=== PATIENT | male | born 1960 | race Two or more races ===

== ENCOUNTER → 2018-09-11 16:09 | Outpatient (BNV) | payer MEDICAID, SELFPAY ==
--- NOTE | 2018-09-11 16:09 | PR.OPPALCARP ---
OP Palliative Care CWC Care Plan Follow-up Comments Additional Comments: On 09/10/18 CONTROL SYSTEM MANAGER spoke to Didier from [facility] (P:[phone]) regarding DME request submitted on 09/05/18. Didier reported requested would be re-submitted as it had not been reviewed by them. He reported he would add the day that it was originally sent out on 09/05/18 and should be processed within 7-10 business day. CONTROL SYSTEM MANAGER will continue to follow-up. *CWC Office Visit complete CWC Offive Visit Complete CWC Visit Complete?: No
--- NOTE | 2018-09-11 16:12 | CWCCLINC_ITS ---
OP Palliative Care CWC Care Plan Follow-up Comments Additional Comments: On 09/10/18 STATION CHIEF spoke to Didier from [facility] ([phone]) regarding DME request submitted on 09/05/18. Didier reported requested would be re-submitted as it had not been reviewed by them. He reported he would add the day that it was originally sent out on 09/05/18 and should be processed within 7- 10 business day. STATION CHIEF will continue to follow-up. *CWC Office Visit complete CWC Offive Visit Complete CWC Visit Complete?: No

== ENCOUNTER → 2018-09-19 16:09 | Outpatient (BNV) | payer MEDICAID, SELFPAY ==
--- NOTE | 2018-09-19 16:09 | PR.OPPALCARP ---
OP Palliative Care CWC Care Plan Follow-up Comments Additional Comments: PRETZEL TWISTER received call from [employer] regarding referral for patient wheelchair. April from [employer] reported they did not have wheelchairs in stock for patient size at the time. She reported she was not aware if they were able to obtain any at this time. She recommended PRETZEL TWISTER send referrals to [facility] or [facility]. PRETZEL TWISTER had previously submitted referral to [facility] but referral was declined due to no contract with patient insurance. PRETZEL TWISTER contacted [facility] on 09/19/18, who reported they have contract with patient insurance, however, a referral can take longer due to them obtaining a TAR (authorization) from the insurance. PRETZEL TWISTER faxed referarl to [facility] at [phone]. Will continue to follow-up. *CWC Office Visit complete CWC Offive Visit Complete CWC Visit Complete?: No
--- NOTE | 2018-09-19 16:14 | CWCCLINC_ITS ---
OP Palliative Care CWC Care Plan Follow-up Comments Additional Comments: TOOL CARRIER received call from [employer] regarding referral for patient wheelchair. April from [employer] reported they did not have wheelchairs in stock for patient size at the time. She reported she was not aw are if they were able to obtain any at this time. She recommended TOOL CARRIER send referrals to [facility] or [facility]. TOOL CARRIER had previously submitted referral to [facility] but referral was declined due to no contract with patient insurance. TOOL CARRIER contacted [facility] on 09/19/18, who reported they have contract with patient insurance, however, a referral can take longer due to them obtaining a TAR (authorization) from the insurance. TOOL CARRIER faxed referarl to [facility] at [phone]. Will continue to follow-up. *CWC Office Visit complete CWC Offive Visit Complete CWC Visit Complete?: No

== ENCOUNTER → 2024-05-06 | Outpatient (CLI) | payer MEDICARE, MEDICAID, SELFPAY ==
[2024-05-06 12:25] LABS: Basophils % (Auto) 0 % (0-2.5); Eosinophils # (Auto) 0.1 Thou/mm3 (0.0-0.5); Eosinophils % (Auto) 2 % (0-10); Hematocrit 37.7 % (41.0-53.0); Hemoglobin 12.5 g/dL (13.5-16.0); Immature Granulocytes % (Auto) 0 % (0-0); Immature Granulocytes Auto 0.02 Thou/mm3 (0.00-0.00); Lymphocytes # (Auto) 1.2 Thou/mm3 (1.0-4.8); Lymphocytes % (Auto) 19 % (10-50); Mean Corpuscular HGB Conc 33.2 g/dl (31.0-37.0); Mean Corpuscular Hemoglobin 28.3 pg (25.0-35.0); Mean Corpuscular Volume 85 fL (80-100); Monocytes # (Auto) 0.4 Thou/mm3 (0.0-0.8); Monocytes % (Auto) 6 % (0-12); Neutrophils # (Auto) 4.4 Thou/mm3 (1.8-7.7); Neutrophils % (Auto) 73 % (37-80); Nucleated Red Blood Cell % 0 /100 WBC (0); Platelet Count 238 Thou/mm3 (140-440); RDW Standard Deviation 40.6 fL (35.1-43.9); Red Blood Count 4.42 Miln/mm3 (4.50-5.90); White Blood Count 6.1 Thou/mm3 (3.8-10.6)
[2024-05-06 12:37] LABS: Prostate Specific Antigen 2.68 ng/mL (0-4.00)
[2024-05-06 12:41] LABS: Alanine Aminotransferase 22 U/L (10-49); Albumin, Serum 4.4 gm/dL (3.4-4.8); Albumin/Globulin Ratio 1.8 (1.2-2.2); Alkaline Phosphatase 57 U/L (46-116); Anion Gap 9 (7-16); Aspartate Amino Transferase 20 U/L (0-34); BUN/Creatinine Ratio 15 Ratio (12-20); Bilirubin,Total 0.5 mg/dL (0.3-1.2); Blood Urea Nitrogen 12 mg/dL (9-23); Carbon Dioxide 24.8 mMol/L (20.0-31.0); Chloride 104 mMol/L (98-107); Creatinine (Component) 0.8 mg/dL (0.6-1.3); Globulin 2.4 gm/dL (2.3-3.5); Glucose 205 mg/dL (74-106); Osmolality,Calculated 281 (275-295); Potassium 4.3 mMol/L (3.4-5.1); Sodium 138 mMol/L (136-145); Total Protein 6.8 gm/dL (5.7-8.2); eGFR > 60 See Note
== END | disposition home or self-care (01) ==
PROVIDERS: PCP Family Medicine; Referring Provider Internal Medicine Hematology & Oncology; Visit Provider Internal Medicine Hematology & Oncology
DX: C61 Malignant neoplasm of prostate (principal); C79.51 Secondary malignant neoplasm of bone
CPT/HCPCS: 36415; 80053; 84153; 85025

== ENCOUNTER → 2024-05-19 | Outpatient (CLI) | payer MEDICARE, MEDICAID, SELFPAY ==
[2024-05-25 06:56] LABS: Testosterone,Total* 7 ng/dL (250-1100)
== END | disposition home or self-care (01) ==
LOC: SCTO 11:50
PROVIDERS: PCP Family Medicine; Referring Provider Internal Medicine Hematology & Oncology; Visit Provider Internal Medicine Hematology & Oncology
DX: C61 Malignant neoplasm of prostate (principal); C79.51 Secondary malignant neoplasm of bone
CPT/HCPCS: 36415; 84403

== ENCOUNTER 2024-05-27 13:53 | Outpatient (RCR) | payer MEDICARE, MEDICAID, SELFPAY ==
--- NOTE | 2024-05-12 05:27 | CTCFLWUP_ITS ---
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 Progressed on Zytiga and prednisone. Xtandi started on 09/21/2019. He is also on Lupron and Xgeva. PSA is slowly increasing BRCA 1and2 are negative. History of ptosis of right eye, currently resolved. REASON FOR TODAY?S VISIT: This is office follow-up visit. Mr. Flowers is here at [facility]. He is clinically doing very well. Denies any new complaints. Denies any cough, chest pain, abdominal pain or leg cramps. Ambulating well without any help. Has good mitzi etite and good energy levels. Currently he is on Lupron, Xgeva and Xtandi. He is tolerating these m edications well. His PSA is 1.79 on 12/30/2023. . HISTORY OF PRESENT ILLNESS: Will Flowers is a 63-year-old SPA speaking male [facility]: Patient had CT scan of the chest abdomen and pelvis with contrast due to sudden onset of ri ght-sided chest and abdominal pain. It showed enlarged prostate gland as well as multiple sclerotic lesions within the vertebral bodies and the innominate bone. Multiple enlarged lymph nodes in the me diastinum, hans and retroperitoneum was also present. Ultrasound of the abdomen done on the same day showed large gallbladder calculus measuring up to 4 cm within a moderately thick-walled gallbladder. Positive sonographic Dang sign was present. 06/18/2018: Patient had cholecystectomy done which showed acute necrotizing cholecystitis with hemorrha ge and cholelithiasis. 07/22/2018: PSA 594.4. Alkaline phosphatase 2181. 08/04/2018: Bone scan was done which showed widespread osseous metastatic disease with increased isoto pe accumulation in the sternum, ribs, skull, cervical thoracic lumbar spine, pelvis, hips, right femo ral shaft, bilateral shoulders and right humeral shaft. 08/12/2018: Patient was prescribed Casodex. 08/27/2018: Ultrasound-guided percutaneous transrectal prostate biopsy was performed. Pathology showe d Barne[place]d score 8 prostatic adenocarcinoma with perineural invasion. 09/02/2018: PSA 359.1, alkaline phosphatase 3813. 09/25/2018: Patient had MRI of the brain which showed areas of suspicious metastasis in the skull. 10/06/2018: PSA 48.4, alk phos 1288 10/20/2018: PSA 39.8, alk phos 535 12/08/2018: PSA 3.0, alkaline phosphatase 155. 02/18/2019: PSA 0.3. Alkaline phosphatase 65 normalized. 02/19/2019: Patient was started on Zytiga and prednisone in addition to Lupron. Casodex discontinued. 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 07/22/2019: PSA is 3.65. 09/17/2019: PSA 13.56. 09/21/2019: Patient is started on Xtandi. Zytiga and prednisone were discontinued. He continues to g et Lupron and Xgeva. 11/05/2019?11/18/2019: Patient received 2500 cGy radiation therapy to the left pelvis. 11/18/2019: PSA less than 0.10 12/08/2019: MRI of the brain with contrast? 05/20/2020: PSA less than 0.10. 06/05/2021: PSA less than 0.10. 06/17/2020: MRI of the thoracic spine and lumbar spine with IV contrast? 11/28/2020: PSA less than 0.10. 06/05/2021: PSA less than 0.10 09/28/2021: PSA less than 0.10. 12/28/2021: PSA 0.11. 02/14/2022: PSA 0.20. 03/13/2022: Bone scan? 03/28/2022: CT scan of the abdomen and pelvis with IV contrast? [facility]? 07/20/2022: PSA 0.35. 09/28/2022: PSA 0.44. 10/23/2022: PSA 0.50. 12/28/2022: PSA 0.53. 04/01/2023: PSA 0.91. 04/22/2023: PSA 1.04. Hemoglobin 11.9, MCV 85, WBC 6.7, ANC 5.0, platelets 240,000, creatinine 0.8, alkaline phosphatase 48. 07/02/2023: PSA 1.17. 07/23/2023: PSA 1.6. 07/24/2023: Bone density test? 09/20/2023: PSA 1.34. 12/30/2023: PSA 1.79. PAST MEDICAL HISTORY: PAST SURGICAL HISTORY: MEDICATIONS: 1. amlodipine-benazepril - 10-40 mg 1 Capsule Daily 2. Calcium 600 - 1 Capsule Every other day 3. fentanyl - 25 mcg/hr 1 Patch q3d 4. fentanyl - 50 mcg/hr 1 Patch q3d 5. [place] - 10-325 mg 1 tab q6 6. raNITIdine HCl - 150 mg 1 tab As needed 7. Xtandi - 40 mg 4 Capsule Daily?Palabra Meds? Medications Last Reconciled by Abbi Haddad MA on 01/23/2024 ALLERGIES: No Known Drug Allergies REVIEW OF SYSTEMS:?Clone ROS? Neurological: No headache, seizures or blurring of vision. Gastrointestinal: No nausea, vomiting, diarrhea or constipation. Cardiovascular: No palpitations or angina pains. Respiratory: No cough, chest pain or shortness of breath. PHYSICAL EXAMINATION:?ClonePE? VITAL SIGNS: Temperature?98.2, B/P?156/76, Oxygen?Saturation?97% Weight?216?lbs (Change?since?01/02/24 :?1.8?lbs) PAIN: 3 - Between mild and moderate pain Patient is alert oriented x 3 S1-S2 Bilateral good air entry Abdomen soft nontender nondistended no edema ASSESSMENT: 1. castration resistant metastatic prostate cancer with bone metastases as well as retroperitoneal ly mphadenopathy The patient had a lumbar spine, T-spine as well as pelvic radiation therapy in the past PSA is 1.79. The patient denies any complaints. Currently on Lupron, Xtandi as well as Xgeva. He is tolerating these medications very well without a ny significant side effects. PSA has been steadily increasing over the last few months as documented above. Bone scan done on 07/24/2023 at [facility] showed evidence of metastatic disease to the bon es as documented above. . PLAN: Continue Lupron, Xtandi as well as Xgeva. Patient is a good candidate for radium [address] referral to higher level care for the same. Electronically signed by Dr Greene Electronically Signed by: {Object.Sanct_ID*[email or web address]@M}, {Object.Sanct_ID*PnP.Suffix@U} D: {Object.Sanct_Date} T: {Object.Sanct_Time} CC: PCP: Sabino Rodríguez Referring: Sabnio Rodríguez This document was completed utilizing speech recognition software. Grammatical errors, random word in sertions, pronoun errors, and incomplete sentences are an occasional consequence of this system due t o software limitations, ambient noise, and hardware issues. Any formal questions or concerns about th e content, text or information contained within the body of this dictation should be directly address ed to the provider for clarification.
== END 2024-06-09 23:59 | disposition home or self-care (01) ==
LOC: SCTC 13:53
PROVIDERS: PCP Family Medicine; Referring Provider Internal Medicine Hematology & Oncology; Visit Provider Radiology Therapeutic Radiology
DX: C61 Malignant neoplasm of prostate (principal); C79.51 Secondary malignant neoplasm of bone; Z79.818 Long term (current) use of other agents affecting estrogen receptors and estrogen levels; R59.0 Localized enlarged lymph nodes
CPT/HCPCS: 99212; 99213; G0463

== ENCOUNTER → 2024-06-26 | Outpatient (CLI) | payer MEDICARE, MEDICAID, SELFPAY ==
[2024-06-26 13:01] LABS: Basophils % (Auto) 0 % (0-2.5); Eosinophils # (Auto) 0.1 Thou/mm3 (0.0-0.5); Eosinophils % (Auto) 1 % (0-10); Hematocrit 37.2 % (41.0-53.0); Hemoglobin 12.9 g/dL (13.5-16.0); Immature Granulocytes % (Auto) 0 % (0-0); Immature Granulocytes Auto 0.02 Thou/mm3 (0.00-0.00); Lymphocytes % (Auto) 15 % (10-50); Mean Corpuscular HGB Conc 34.7 g/dl (31.0-37.0); Mean Corpuscular Hemoglobin 28.7 pg (25.0-35.0); Mean Corpuscular Volume 83 fL (80-100); Monocytes # (Auto) 0.4 Thou/mm3 (0.0-0.8); Monocytes % (Auto) 6 % (0-12); Neutrophils # (Auto) 5.3 Thou/mm3 (1.8-7.7); Neutrophils % (Auto) 78 % (37-80); Nucleated Red Blood Cell % 0 /100 WBC (0); Platelet Count 224 Thou/mm3 (140-440); RDW Standard Deviation 38.7 fL (35.1-43.9); White Blood Count 6.7 Thou/mm3 (3.8-10.6)
[2024-06-26 13:23] LABS: Prostate Specific Antigen 3.06 ng/mL (0-4.00)
[2024-06-26 13:26] LABS: Alanine Aminotransferase 24 U/L (10-49); Albumin, Serum 4.5 gm/dL (3.4-4.8); Alkaline Phosphatase 54 U/L (46-116); Anion Gap 9 (7-16); Aspartate Amino Transferase 19 U/L (0-34); BUN/Creatinine Ratio 19 Ratio (12-20); Bilirubin,Total 0.5 mg/dL (0.3-1.2); Blood Urea Nitrogen 19 mg/dL (9-23); Calcium 9.7 mg/dL (8.3-10.6); Calcium (Corrected) 9.7 mg/dL (8.5-10.1); Carbon Dioxide 26.7 mMol/L (20.0-31.0); Chloride 104 mMol/L (98-107); Globulin 2.3 gm/dL (2.3-3.5); Glucose 132 mg/dL (74-106); Osmolality,Calculated 283 (275-295); Potassium 4.2 mMol/L (3.4-5.1); Sodium 140 mMol/L (136-145); Total Protein 6.8 gm/dL (5.7-8.2); eGFR > 60 See Note
== END | disposition home or self-care (01) ==
LOC: SCTO 11:45
PROVIDERS: PCP Family Medicine; Referring Provider Internal Medicine Hematology & Oncology; Visit Provider Internal Medicine Hematology & Oncology
DX: C61 Malignant neoplasm of prostate (principal); C79.51 Secondary malignant neoplasm of bone
CPT/HCPCS: 36415; 80053; 84153; 85025

== ENCOUNTER 2024-06-30 13:26 | Outpatient (RCR) | payer MEDICARE, MEDICAID, SELFPAY | END 2024-07-10 23:59 | disposition home or self-care (01) | LOC: SCTC 13:26 | PROVIDERS: PCP Family Medicine; Referring Provider Family Medicine; Visit Provider Internal Medicine Hematology & Oncology | DX: Z51.11 Encounter for antineoplastic chemotherapy (principal); C61 Malignant neoplasm of prostate; C79.51 Secondary malignant neoplasm of bone; Z19.2 Hormone resistant malignancy status; Z79.818 Long term (current) use of other agents affecting estrogen receptors and estrogen levels | CPT/HCPCS: 96372; 96402; J0897; J9217 ==

== ENCOUNTER 2024-08-25 14:00 | Outpatient (RCR) | payer MEDICARE, MEDICAID, SELFPAY ==
--- NOTE | 2024-08-25 17:16 | CTCFLWUP_ITS ---
Gene Madrigal [facility] [address] [place], [place] [address] FOLLOW-UP NOTE Date: 08/25/2024 MR#: [id number] Name: LISE FLOWERS : 1960 Dx: C61 Malignant neoplasm of prostate Identification. Patient with stage IV castrate resistant metastatic carcinoma bone mets noted since 07/22/2018. Had palliative XRT to TL spine 3000 cGy September 26 and 2500 centigray to left pelvis November 2019. Had been on Lupron Xgeva Xtandi under medical oncologist?s direction. PSA after initial good control is slowly rising. Bone scan 07/24/2023 revealed significant metastatic disease in the bones. Most recent PSA 06/26/2024 3.06. Pain reasonably controlled with fentanyl 50 and [place] 10 every 6. Cures website checked we will see him again in 3 months. Electronically signed by: Barron Soto M.D. 08/25/2024 5:13 PM
== END 2024-09-07 23:59 | disposition home or self-care (01) ==
LOC: SCTC 14:00
PROVIDERS: PCP Family Medicine; Referring Provider Family Medicine; Visit Provider Radiology Therapeutic Radiology
DX: C61 Malignant neoplasm of prostate (principal); C79.51 Secondary malignant neoplasm of bone; Z19.2 Hormone resistant malignancy status; Z92.3 Personal history of irradiation; Z79.818 Long term (current) use of other agents affecting estrogen receptors and estrogen levels
CPT/HCPCS: 99213; G0463

== ENCOUNTER → 2024-09-24 | Outpatient (CLI) | payer MEDICARE, MEDICAID, SELFPAY ==
[2024-09-24 12:24] LABS: Basophils % (Auto) 1 % (0-2.5); Eosinophils # (Auto) 0.1 Thou/mm3 (0.0-0.5); Eosinophils % (Auto) 2 % (0-10); Hematocrit 37.4 % (41.0-53.0); Hemoglobin 12.5 g/dL (13.5-16.0); Immature Granulocytes % (Auto) 1 % (0-0); Immature Granulocytes Auto 0.03 Thou/mm3 (0.00-0.00); Lymphocytes % (Auto) 20 % (10-50); Mean Corpuscular HGB Conc 33.4 g/dl (31.0-37.0); Mean Corpuscular Hemoglobin 28.6 pg (25.0-35.0); Mean Corpuscular Volume 86 fL (80-100); Monocytes # (Auto) 0.2 Thou/mm3 (0.0-0.8); Monocytes % (Auto) 5 % (0-12); Neutrophils # (Auto) 3.5 Thou/mm3 (1.8-7.7); Neutrophils % (Auto) 73 % (37-80); Nucleated Red Blood Cell % 0 /100 WBC (0); Platelet Count 217 Thou/mm3 (140-440); RDW Standard Deviation 41.4 fL (35.1-43.9); Red Blood Count 4.37 Miln/mm3 (4.50-5.90); White Blood Count 4.9 Thou/mm3 (3.8-10.6)
[2024-09-24 12:38] LABS: Alanine Aminotransferase 20 U/L (10-49); Albumin, Serum 4.2 gm/dL (3.4-4.8); Albumin/Globulin Ratio 1.8 (1.2-2.2); Alkaline Phosphatase 47 U/L (46-116); Anion Gap 9 (7-16); Aspartate Amino Transferase 24 U/L (0-34); BUN/Creatinine Ratio 14 Ratio (12-20); Bilirubin,Total 0.5 mg/dL (0.3-1.2); Blood Urea Nitrogen 13 mg/dL (9-23); Calcium 9.2 mg/dL (8.3-10.6); Calcium (Corrected) 9.2 mg/dL (8.5-10.1); Carbon Dioxide 25.3 mMol/L (20.0-31.0); Chloride 108 mMol/L (98-107); Creatinine (Component) 0.9 mg/dL (0.6-1.3); Globulin 2.4 gm/dL (2.3-3.5); Glucose 226 mg/dL (74-106); Osmolality,Calculated 290 (275-295); Potassium 4.3 mMol/L (3.4-5.1); Sodium 142 mMol/L (136-145); Total Protein 6.6 gm/dL (5.7-8.2); eGFR > 60 See Note
== END | disposition home or self-care (01) ==
LOC: SCTO 11:07
PROVIDERS: PCP Family Medicine; Referring Provider Internal Medicine Hematology & Oncology; Visit Provider Internal Medicine Hematology & Oncology
DX: C61 Malignant neoplasm of prostate (principal); C79.51 Secondary malignant neoplasm of bone
CPT/HCPCS: 36415; 80053; 84153; 85025

== ENCOUNTER 2024-09-28 13:07 | Outpatient (RCR) | payer MEDICARE, MEDICAID, SELFPAY | END 2024-10-07 23:59 | disposition home or self-care (01) | LOC: SCTC 13:07 | PROVIDERS: PCP Family Medicine; Referring Provider Family Medicine; Visit Provider Internal Medicine Hematology & Oncology | DX: Z51.11 Encounter for antineoplastic chemotherapy (principal); C61 Malignant neoplasm of prostate; C79.51 Secondary malignant neoplasm of bone; Z19.2 Hormone resistant malignancy status; Z92.3 Personal history of irradiation | CPT/HCPCS: 96372; 96402; J0897; J9217 ==

== ENCOUNTER 2024-11-25 11:23 | Outpatient (RCR) | payer MEDICARE, MEDICAID, SELFPAY ==
--- NOTE | 2024-11-25 12:11 | CTCFLWUP_ITS ---
[facility] [address] [place], [place] [address] FOLLOW-UP NOTE Date: 11/25/2024 MR#: [id number] Name: LISE FLOWERS : 1960 Dx: C61 Malignant neoplasm of prostate Identification. Patient with stage IV castrate resistant metastatic prostate cancer With bone mets noted since 07/22/2018. Palliative XRT to TL spine 3000 cGy September 2018 and 25 to centigray left pelvis November 2019. Has been on Lupron and Xgeva Xtandi under medical oncologist direction. Most recent bone scan July 24, 2023 widespread bone mets. Most recent PSA 09/24/2024 3.10. Pain meds Fentanyl 50 [place] 10 Q6 case patient reasonably under control. [employer] website checked safe use of meds discussed.. Electronically signed by: Barron Soto M.D. 11/25/2024 12:09 PM
== END 2024-12-07 23:59 | disposition home or self-care (01) ==
LOC: SCTC 11:23
PROVIDERS: PCP Family Medicine; Referring Provider Family Medicine; Visit Provider Radiology Therapeutic Radiology
DX: C61 Malignant neoplasm of prostate (principal); C79.51 Secondary malignant neoplasm of bone; Z19.2 Hormone resistant malignancy status; Z92.3 Personal history of irradiation; Z79.818 Long term (current) use of other agents affecting estrogen receptors and estrogen levels
CPT/HCPCS: 99213; G0463

== ENCOUNTER → 2024-12-24 | Outpatient (CLI) | payer MEDICARE, MEDICAID, SELFPAY ==
[2024-12-24 12:08] LABS: Basophils # (Auto) 0.0 Thou/mm3 (0.0-0.2); Basophils % (Auto) 1 % (0-2.5); Eosinophils # (Auto) 0.1 Thou/mm3 (0.0-0.5); Eosinophils % (Auto) 1 % (0-10); Hematocrit 34.8 % (41.0-53.0); Hemoglobin 12.1 g/dL (13.5-16.0); Immature Granulocytes Auto 0.04 Thou/mm3 (0.00-0.00); Lymphocytes # (Auto) 1.1 Thou/mm3 (1.0-4.8); Lymphocytes % (Auto) 19 % (10-50); Mean Corpuscular HGB Conc 34.8 g/dl (31.0-37.0); Mean Corpuscular Hemoglobin 28.7 pg (25.0-35.0); Mean Corpuscular Volume 83 fL (80-100); Monocytes # (Auto) 0.3 Thou/mm3 (0.0-0.8); Monocytes % (Auto) 6 % (0-12); Neutrophils # (Auto) 4.1 Thou/mm3 (1.8-7.7); Neutrophils % (Auto) 73 % (37-80); Nucleated Red Blood Cell # 0.00 Thou/mm3 (0.00-0.00); Nucleated Red Blood Cell % 0 /100 WBC (0); Platelet Count 221 Thou/mm3 (140-440); RDW Standard Deviation 39.5 fL (35.1-43.9); Red Blood Count 4.22 Miln/mm3 (4.50-5.90); White Blood Count 5.7 Thou/mm3 (3.8-10.6)
[2024-12-24 12:18] LABS: Prostate Specific Antigen 4.01 ng/mL (0-4.00)
[2024-12-24 12:20] LABS: Alanine Aminotransferase 19 U/L (10-49); Albumin, Serum 4.1 gm/dL (3.4-4.8); Albumin/Globulin Ratio 1.6 (1.2-2.2); Alkaline Phosphatase 48 U/L (46-116); Anion Gap 10 (7-16); Aspartate Amino Transferase 23 U/L (0-34); BUN/Creatinine Ratio 17 Ratio (12-20); Bilirubin,Total 0.5 mg/dL (0.3-1.2); Blood Urea Nitrogen 17 mg/dL (9-23); Calcium 9.0 mg/dL (8.3-10.6); Calcium (Corrected) 9.0 mg/dL (8.5-10.1); Carbon Dioxide 23.7 mMol/L (20.0-31.0); Chloride 105 mMol/L (98-107); Creatinine (Component) 1.0 mg/dL (0.6-1.3); Globulin 2.6 gm/dL (2.3-3.5); Glucose 241 mg/dL (74-106); Osmolality,Calculated 287 (275-295); Potassium 4.4 mMol/L (3.4-5.1); Sodium 139 mMol/L (136-145); Total Protein 6.7 gm/dL (5.7-8.2); eGFR > 60 See Note
== END | disposition home or self-care (01) ==
LOC: COPL 11:11
PROVIDERS: PCP Family Medicine; Referring Provider Internal Medicine Hematology & Oncology; Visit Provider Internal Medicine Hematology & Oncology
DX: C61 Malignant neoplasm of prostate (principal); C79.51 Secondary malignant neoplasm of bone
CPT/HCPCS: 36415; 80053; 84153; 85025

== ENCOUNTER 2024-12-29 14:53 | Outpatient (RCR) | payer MEDICARE, MEDICAID, SELFPAY ==
--- NOTE | 2025-01-04 05:00 | CTCFLWUP_ITS ---
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 Progressed on Zytiga and prednisone. Xtandi started on 09/21/2019. He is also on Lupron and Xgeva. PSA is slowly increasing BRCA 1and2 are negative. History of ptosis of right eye, currently resolved. REASON FOR TODAY?S VISIT: This is office follow-up visit. Mr. Flowers is here at [facility]. He is clinically doing very well. Denies any new complaints. Denies any cough, chest pain, abdominal pain or leg cramps. Ambulating well without any help. Has good appetite and good energy levels. Currently he is on Lupron, Xgeva and Xtandi. He is tolerating these medications well. His PSA is 1.79 on 12/30/2023. . Malignant neoplasm of prostate [ICD10] C61; Secondary malignant neoplasm of bone [ICD10] C79.51 DATE OF DIAGNOSIS: STAGE/TNM: TREATMENT HISTORY: Care?Plan Start?Date Cycle Day Intent Eligard?3?months 06/30/2020 1 90 Palliative Xgeva?120?mg?q?3?months 06/30/2020 1 90 Palliative DOCEtaxel?75?mg/m*2?and?prednisone?5?mg?bid 10/25/2022 1 21 Palliative Lupron?22.5?mg?q?3?mon 10/03/2023 1 90 Palliative HISTORY OF PRESENT ILLNESS: Will Flowers is a 64-year-old SPA speaking male with following oncology history. 06/17/2018: Patient had CT scan of the chest abdomen and pelvis with contrast due to sudden onset of right-sided chest and abdominal pain. It showed enlarged prostate gland as well as multiple sclerotic lesions within the vertebral bodies and the innominate bone. Multiple enlarged lymph nodes in the mediastinum, hans and retroperitoneum was also present. Ultrasound of the abdomen done on the same day showed large gallbladder calculus measuring up to 4 cm within a moderately thick-walled gallbladder. Positive sonographic Dang sign was present. 06/18/2018: Patient had cholecystectomy done which showed acute necrotizing cholecystitis with hemorrhage and cholelithiasis. 07/22/2018: PSA 594.4. Alkaline phosphatase 2181. 08/04/2018: Bone scan was done which showed widespread osseous metastatic disease with increased isotope accumulation in the sternum, ribs, skull, cervical thoracic lumbar spine, pelvis, hips, right femoral shaft, bilateral shoulders and right humeral shaft. 08/12/2018: Patient was prescribed Casodex. 08/27/2018: Ultrasound-guided percutaneous transrectal prostate biopsy was performed. Pathology showed Wilbert score 8 prostatic adenocarcinoma with perineural invasion. 09/02/2018: PSA 359.1, alkaline phosphatase 3813. 09/25/2018: Patient had MRI of the brain which showed areas of suspicious metastasis in the skull. 10/06/2018: PSA 48.4, alk phos 1288 10/20/2018: PSA 39.8, alk phos 535 12/08/2018: PSA 3.0, alkaline phosphatase 155. 02/18/2019: PSA 0.3. Alkaline phosphatase 65 normalized. 02/19/2019: Patient was started on Zytiga and prednisone in addition to Lupron. Casodex discontinued. 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 07/22/2019: PSA is 3.65. 09/17/2019: PSA 13.56. 09/21/2019: Patient is started on Xtandi. Zytiga and prednisone were discontinued. He continues to get Lupron and Xgeva. 11/05/2019?11/18/2019: Patient received 2500 cGy radiation therapy to the left pelvis. 11/18/2019: PSA less than 0.10 12/08/2019: MRI of the brain with contrast? 05/20/2020: PSA less than 0.10. 06/05/2021: PSA less than 0.10. 06/17/2020: MRI of the thoracic spine and lumbar spine with IV contrast? 11/28/2020: PSA less than 0.10. 06/05/2021: PSA less than 0.10 09/28/2021: PSA less than 0.10. 12/28/2021: PSA 0.11. 02/14/2022: PSA 0.20. 03/13/2022: Bone scan? 03/28/2022: CT scan of the abdomen and pelvis with IV contrast? 04/16/2022: [facility] Cdx study? 07/20/2022: PSA 0.35. 09/28/2022: PSA 0.44. 10/23/2022: PSA 0.50. 12/28/2022: PSA 0.53. 04/01/2023: PSA 0.91. 04/22/2023: PSA 1.04. Hemoglobin 11.9, MCV 85, WBC 6.7, ANC 5.0, platelets 240,000, creatinine 0.8, alkaline phosphatase 48. 07/02/2023: PSA 1.17. 07/23/2023: PSA 1.6. 07/24/2023: Bone density test? 09/20/2023: PSA 1.34. 12/30/2023: PSA 1.79. OTHER MEDICAL HISTORY/CONDITIONS: FAMILY HISTORY: SOCIAL HISTORY: MEDICATIONS: 1. amlodipine-benazepril - 10-40 mg 1 Capsule Daily 2. Calcium 600 - 1 Capsule Every other day 3. fentanyl - 25 mcg/hr 1 Patch q3d 4. fentanyl - 50 mcg/hr 1 Patch q3d 5. [place] - 10-325 mg 1 tab q6 6. raNITIdine HCl - 150 mg 1 tab As needed 7. Xtandi - 40 mg 4 Capsule Daily Medications Last Reconciled by Elisa Fregoso MD on 12/29/2024 ALLERGIES: No Known Drug Allergies REVIEW OF SYSTEMS: A complete 14-point review of systems was performed and is negative except as noted in interval history. PHYSICAL EXAMINATION: VITAL SIGNS: Temperature?98.4, B/P?138/73, Oxygen?Saturation?97% Weight?220?lbs (Change?since?12/28/24:?0?lbs) PAIN: 0 - No pain ECOG Performance Status: None Patient is alert oriented x 3 S1-S2 Bilateral good air entry Abdomen soft nontender nondistended no edema LABORATORY DATA: I have personally reviewed and interpreted each of the patient?s relevant lab tests, abnormal findings are below: Date 09/24/24 12/24/24 ??WHITE?BLOOD?COUNT?(Thou/mm3) 4.9 5.7 ??RED?BLOOD?COUNT?(Miln/mm3) 4.37?L 4.22?L ??HEMOGLOBIN?(gm/dl) 12.5?L 12.1?L ??HEMATOCRIT?(%) 37.4?L 34.8?L ??PLATELET?COUNT?(Thou/mm3) 217 221 ??NEUTROPHILS?%,?AUTO?(%) 73 73 ??LYMPH?%,?AUTO?(%) 20 19 ??NEUTROPHILS,?AUTO?(Thou/mm3) 3.5 4.1 ??GLUCOSE,RANDOM?(mg/dL) 226?H 241?H ??BLOOD?UREA?NITROGEN?(mg/dL) 13 17 ??CREATININE?(mg/dL) 0.90 1.00 ??SODIUM?(mmol/L) 142 139 ??POTASSIUM?(mmol/L) 4.3 4.4 ??CHLORIDE?(mmol/L) 108?H 105 ??CrCl?(CandG)?(ml/min) 87.25 77.77 ??AST/SGOT?(Unit/L) 24 23 ??ALT/SGPT?(Unit/L) 20 19 ??ALKALINE?PHOSPHATASE?(Unit/L) 47 48 ??BILIRUBIN,?TOTAL?(mg/dL) 0.5 0.5 ??PROTEIN?TOTAL?(gm/dl) 6.6 6.7 ??ALBUMIN,?SERUM?(gm/dl) 4.2 4.1 ??GLOBULIN?(gm/dl) 2.4 2.6 ??ALBUMIN/GLOBULIN?RATIO 1.8 1.6 ??CALCIUM,?SERUM?(mg/dL) 9.2 9.0 ??CALCIUM?SERUM?(CORRECTED)?(mg/dL) 9.2 9.0 ASSESSMENT/PLAN: 1. castration resistant metastatic prostate cancer with bone metastases as well as retroperitoneal lymphadenopathy The patient had a lumbar spine, T-spine as well as pelvic radiation therapy in the past PSA is 1.79. The patient denies any complaints. Currently on Lupron, Xtandi as well as Xgeva. He is tolerating these medications very well without any significant side effects. PSA has been steadily increasing over the last few months as documented above. Bone scan done on 07/24/2023 at [facility] showed evidence of metastatic disease to the bones as documented above. . Continue Lupron, Xtandi as well as Xgeva. Patient is a good candidate for radium 223 Referral placed and advised to follow-up ORDERS: Order # Description [id number] PET/CT of Whole Body for Restaging [id number] Follow Up 2 Months + Comprehensive Metabolic Panel - 12 + CBC with Auto Diff + PSA RETURN TO CLINIC: I reviewed the diagnosis, prognosis, and recommended treatment/procedure options with the patient (and/or their legal client account representative), including the potential benefits, risks, side effects and alternative therapies. We also discussed the option of no treatment and the possibility of clinical trial participation, if applicable. All questions were addressed, and they demonstrated understanding. They provided informed consent to proceed with the proposed plan of care. BILLING AND COMPLIANCE: I reviewed external records from providers outside my specialty as summarized above. I spent a total of 50 minutes on this patient?s care on the day of their visit excluding time spent related to any billed procedures. This time includes time spent with the patient as well as time spent documenting in the medical record, reviewing patients records and tests, obtaining history, placing orders, communicating with other healthcare professionals, counseling the patient, family or caregiver, and/or care coordination for the diagnoses above. Electronically Signed by: {Object.Sanct_ID*PnP.NameFL@M}, {Object.Sanct_ID*PnP.Suffix@U} D: {Object.Sanct_Date} T: {Object.Sanct_Time} CC: Barron?Brittany,? PCP: Sabino Rodríguez Referring: Barron Soto This document was completed utilizing speech recognition software. Grammatical errors, random word insertions, pronoun errors, and incomplete sentences are an occasional consequence of this system due to software limitations, ambient noise, and hardware issues. Any formal questions or concerns about the content, text or information contained within the body of this dictation should be directly addressed to the provider for clarification.
== END 2025-01-07 23:59 | disposition home or self-care (01) ==
LOC: SCTC 14:53
PROVIDERS: PCP Family Medicine; Referring Provider Radiology Therapeutic Radiology; Visit Provider Internal Medicine Hematology & Oncology
DX: Z51.11 Encounter for antineoplastic chemotherapy (principal); C61 Malignant neoplasm of prostate; C79.51 Secondary malignant neoplasm of bone; Z19.2 Hormone resistant malignancy status; R59.0 Localized enlarged lymph nodes; Z92.3 Personal history of irradiation
CPT/HCPCS: 96372; 96402; 99212; J0897; J9217; G0463

== ENCOUNTER → 2025-01-21 | Outpatient (CLI) | payer MEDICARE, MEDICAID, SELFPAY ==
[2025-01-21 11:00] LABS: Creatinine MALB Rnd Ur 203 mg/dL (30-125); Microalbumin Creat Ratio 2 mg/gCrea (<30); Microalbumin, Random Urine 5 mg/L (0-300)
[2025-01-21 11:02] LABS: Anion Gap 11 (7-16); BUN/Creatinine Ratio 14 Ratio (12-20); Blood Urea Nitrogen 13 mg/dL (9-23); Calcium 9.7 mg/dL (8.3-10.6); Carbon Dioxide 23.9 mMol/L (20.0-31.0); Chloride 106 mMol/L (98-107); Creatinine (Component) 0.9 mg/dL (0.6-1.3); Glucose 155 mg/dL (74-106); Osmolality,Calculated 284 (275-295); Potassium 4.0 mMol/L (3.4-5.1); Sodium 141 mMol/L (136-145); eGFR > 60 See Note
[2025-01-21 14:24] LABS: Cholesterol 168 mg/dL (132-200); Triglycerides 170 mg/dL (30-150)
[2025-01-21 14:54] LABS: Glucose Estimated Average 163 mg/dL (80-131); Hemoglobin A1C 7.3 % Hgb (4.8-6.0)
[2025-01-21 14:57] LABS: Cardiac Risk Estimate 4.8 RATIO (4.0-6.7); HDL Cholesterol 35 mg/dL (40-60); LDL Cholesterol,Calculated 99 mg/dL (0-130)
== END | disposition home or self-care (01) ==
LOC: COPL 09:44
PROVIDERS: PCP Family Medicine; Referring Provider Family Medicine; Visit Provider Family Medicine
DX: R73.9 Hyperglycemia, unspecified (principal); Z83.3 Family history of diabetes mellitus; E78.1 Pure hyperglyceridemia
CPT/HCPCS: 36415; 80048; 80061; 82043; 82570; 83036

== ENCOUNTER → 2025-03-02 | Outpatient (CLI) | payer MEDICARE, MEDICAID, SELFPAY ==
[2025-03-02 12:41] LABS: Basophils # (Auto) 0.0 Thou/mm3 (0.0-0.2); Basophils % (Auto) 0 % (0-2.5); Eosinophils # (Auto) 0.1 Thou/mm3 (0.0-0.5); Eosinophils % (Auto) 1 % (0-10); Hematocrit 36.6 % (41.0-53.0); Hemoglobin 12.5 g/dL (13.5-16.0); Immature Granulocytes Auto 0.03 Thou/mm3 (0.00-0.00); Lymphocytes # (Auto) 1.0 Thou/mm3 (1.0-4.8); Lymphocytes % (Auto) 20 % (10-50); Mean Corpuscular HGB Conc 34.2 g/dl (31.0-37.0); Mean Corpuscular Hemoglobin 28.9 pg (25.0-35.0); Mean Corpuscular Volume 85 fL (80-100); Monocytes # (Auto) 0.3 Thou/mm3 (0.0-0.8); Monocytes % (Auto) 6 % (0-12); Neutrophils # (Auto) 3.7 Thou/mm3 (1.8-7.7); Neutrophils % (Auto) 72 % (37-80); Nucleated Red Blood Cell # 0.00 Thou/mm3 (0.00-0.00); Nucleated Red Blood Cell % 0 /100 WBC (0); Platelet Count 200 Thou/mm3 (140-440); RDW Standard Deviation 39.8 fL (35.1-43.9); Red Blood Count 4.32 Miln/mm3 (4.50-5.90); White Blood Count 5.1 Thou/mm3 (3.8-10.6)
[2025-03-02 13:01] LABS: Prostate Specific Antigen 5.01 ng/mL (0-4.00)
[2025-03-02 13:05] LABS: Alanine Aminotransferase 18 U/L (10-49); Albumin, Serum 4.2 gm/dL (3.4-4.8); Albumin/Globulin Ratio 1.7 (1.2-2.2); Alkaline Phosphatase 48 U/L (46-116); Anion Gap 11 (7-16); Aspartate Amino Transferase 23 U/L (0-34); BUN/Creatinine Ratio 14 Ratio (12-20); Bilirubin,Total 0.6 mg/dL (0.3-1.2); Blood Urea Nitrogen 14 mg/dL (9-23); Calcium 9.2 mg/dL (8.3-10.6); Calcium (Corrected) 9.2 mg/dL (8.5-10.1); Carbon Dioxide 24.5 mMol/L (20.0-31.0); Chloride 105 mMol/L (98-107); Creatinine (Component) 1.0 mg/dL (0.6-1.3); Globulin 2.5 gm/dL (2.3-3.5); Glucose 215 mg/dL (74-106); Osmolality,Calculated 285 (275-295); Potassium 4.0 mMol/L (3.4-5.1); Sodium 140 mMol/L (136-145); Total Protein 6.7 gm/dL (5.7-8.2); eGFR > 60 See Note
== END | disposition home or self-care (01) ==
LOC: SCTO 12:09
PROVIDERS: PCP Family Medicine; Referring Provider Internal Medicine Hematology & Oncology; Visit Provider Internal Medicine Hematology & Oncology
DX: C61 Malignant neoplasm of prostate (principal); C79.51 Secondary malignant neoplasm of bone
CPT/HCPCS: 36415; 80053; 84153; 85025

== ENCOUNTER 2025-03-04 13:04 | Outpatient (RCR) | payer MEDICARE, MEDICAID, SELFPAY ==
--- NOTE | 2025-02-24 12:04 | CTCFLWUP_ITS ---
[facility] [address] [place], [place] [address] FOLLOW-UP NOTE Date: 02/24/2025 MR#: [id number] Name: LISE FLOWERS : 1960 Dx: C61 Malignant neoplasm of prostate Identification. Patient has stage IVb castration resistant metastatic prostate cancer with bone mets since 07/22/2018. Palliative XRT to TL spine 3000 cGy September 2018 and 2500 cGy to left pelvis November 2019. Has been on Lupron and Xgeva Xtandi under medical oncologists direction. Most recent bone scan 07/24/2023 widespread bone mets. Most recent PSA 12/24/2024 4.01 slowly rising. Pain managed with fentanyl 50 and [place] 10 every 6 cures website checked med side effects effectiveness discussed with patient. Patient being considered for radium-223, which used to be done at [facility] but had to be dropped due to financial and insurance concerns. I will see him again in 3 months for pain management. Electronically signed by: Barron Soto M.D. 02/24/2025 12:02 PM
--- NOTE | 2025-03-08 01:43 | CTCFLWUP_ITS ---
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 His history includes progression on prednisone. Transportation barriers prevented his [facility] appointment for iridium therapy and delayed his PSMA PET scan. Current PSA is 5. He continues Xtandi, Lupron, and Xgeva. Plan includes docetaxel (patient prefers awaiting [facility] opinion), completing PSMA PET scan, [facility] follow-up for iridium therapy, and addiction social worker referral for transportation assistance. ONCOLOGY HISTORY:?[facility] Oncology Hx? DIAGNOSIS: Stage IVb castration resistant metastatic prostate cancer with bone metastases (07/22/2018). Progressed on Zytiga and prednisone. Xtandi started on 09/21/2019. He is also on Lupron and Xgeva. PSA is slowly increasing BRCA 1and2 are negative. History of ptosis of right eye, currently resolved. 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 The patient has been experiencing transportation difficulties that have impacted his ability to access specialized care. His daughter, who previously served as his primary caregiver and transported him to appointments, was involved in an accident and is currently unable to assist him. He cannot drive himself and has four children, but the others are out of town or state. The only local daughter who could help is the one who had the accident and is also sick. Due to these transportation barriers, the patient was unable to make his appointment at [facility] for possible iridium therapy for metastatic bone disease, despite having an approved referral that was faxed in December. He has been waiting for a PSMA PET scan appointment in [place], which remains pending. The patient has been adherent to his current medication regimen, which includes Xtandi after progressing on prednisone, Lupron, and Xgeva as supportive therapies. His most recent PSA level was five. He expresses preference to wait for a [facility] opinion before starting chemotherapy and wants his daughter to serve as the primary contact for referrals. Medical History - Stage 4b castration-resistant metastatic prostate cancer with bone marrow loss - Metastatic disease to the bones confirmed on nuclear bone scan November 22, 2023 Medications and Supplements - Xtandi - Lupron - Xgeva - Prednisone - Discontinued. Patient progressed on this medication. Social History - Family Structure: Has four children, most of whom live out of town or state - Living Situation: Primary caregiver is daughter who was recently in an accident and is currently unable to provide assistance - Social Support: Transportation challenges due to inability to drive and limited family support locally; addiction social worker referral being placed for additional support Objective Laboratory, Imaging, and Diagnostic Test Results - Date: November 22, 2023 - Nuclear bone scan: Significant metastatic disease to the bones - PSA: 5 DATE OF DIAGNOSIS: STAGE/TNM: TREATMENT HISTORY: Care?Plan Start?Date Cycle Day Intent Eligard?3?months 06/30/2020 1 90 Palliative Xgeva?120?mg?q?3?months 06/30/2020 1 90 Palliative DOCEtaxel?75?mg/m*2?and?prednisone?5?mg?bid 10/25/2022 1 21 Palliative Lupron?22.5?mg?q?3?mon 10/03/2023 1 90 Palliative Docetaxel?75mg/m2 03/04/2025 1 21 Palliative HISTORY OF PRESENT ILLNESS: Will Flowers is a 64-year-old SPA speaking male with following oncology history. 06/17/2018: Patient had CT scan of the chest abdomen and pelvis with contrast due to sudden onset of right-sided chest and abdominal pain. It showed enlarged prostate gland as well as multiple sclerotic lesions within the vertebral bodies and the innominate bone. Multiple enlarged lymph nodes in the mediastinum, hans and retroperitoneum was also present. Ultrasound of the abdomen done on the same day showed large gallbladder calculus measuring up to 4 cm within a moderately thick-walled gallbladder. Positive sonographic Dang sign was present. 06/18/2018: Patient had cholecystectomy done which showed acute necrotizing cholecystitis with hemorrhage and cholelithiasis. 07/22/2018: PSA 594.4. Alkaline phosphatase 2181. 08/04/2018: Bone scan was done which showed widespread osseous metastatic disease with increased isotope accumulation in the sternum, ribs, skull, cervical thoracic lumbar spine, pelvis, hips, right femoral shaft, bilateral shoulders and right humeral shaft. 08/12/2018: Patient was prescribed Casodex. 08/27/2018: Ultrasound-guided percutaneous transrectal prostate biopsy was performed. Pathology showed Wilbert score 8 prostatic adenocarcinoma with perineural invasion. 09/02/2018: PSA 359.1, alkaline phosphatase 3813. 09/25/2018: Patient had MRI of the brain which showed areas of suspicious metastasis in the skull. 10/06/2018: PSA 48.4, alk phos 1288 10/20/2018: PSA 39.8, alk phos 535 12/08/2018: PSA 3.0, alkaline phosphatase 155. 02/18/2019: PSA 0.3. Alkaline phosphatase 65 normalized. 02/19/2019: Patient was started on Zytiga and prednisone in addition to Lupron. Casodex discontinued. 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 07/22/2019: PSA is 3.65. 09/17/2019: PSA 13.56. 09/21/2019: Patient is started on Xtandi. Zytiga and prednisone were discontinued. He continues to get Lupron and Xgeva. 11/05/2019?11/18/2019: Patient received 2500 cGy radiation therapy to the left pelvis. 11/18/2019: PSA less than 0.10 12/08/2019: MRI of the brain with contrast? 05/20/2020: PSA less than 0.10. 06/05/2021: PSA less than 0.10. 06/17/2020: MRI of the thoracic spine and lumbar spine with IV contrast? 11/28/2020: PSA less than 0.10. 06/05/2021: PSA less than 0.10 09/28/2021: PSA less than 0.10. 12/28/2021: PSA 0.11. 02/14/2022: PSA 0.20. 03/13/2022: Bone scan? 03/28/2022: CT scan of the abdomen and pelvis with IV contrast? 04/16/2022: [facility] Cdx study? 07/20/2022: PSA 0.35. 09/28/2022: PSA 0.44. 10/23/2022: PSA 0.50. 12/28/2022: PSA 0.53. 04/01/2023: PSA 0.91. 04/22/2023: PSA 1.04. Hemoglobin 11.9, MCV 85, WBC 6.7, ANC 5.0, platelets 240,000, creatinine 0.8, alkaline phosphatase 48. 07/02/2023: PSA 1.17. 07/23/2023: PSA 1.6. 07/24/2023: Bone density test? 09/20/2023: PSA 1.34. 12/30/2023: PSA 1.79. OTHER MEDICAL HISTORY/CONDITIONS: FAMILY HISTORY: ?Clone Family Hx? SOCIAL HISTORY: MEDICATIONS: 1. amlodipine-benazepril - 10-40 mg 1 Capsule Daily 2. Calcium 600 - 1 Capsule Every other day 3. fentanyl - 25 mcg/hr 1 Patch q3d 4. fentanyl - 50 mcg/hr 1 Patch q3d 5. [place] - 10-325 mg 1 tab q6 6. raNITIdine HCl - 150 mg 1 tab As needed 7. Xtandi - 40 mg 4 Capsule Daily?[place]ra Meds? Medications Last Reconciled by Elisa Fregoso MD on 03/04/2025 ALLERGIES: No Known Drug Allergies REVIEW OF SYSTEMS: A complete 14-point review of systems was performed and is negative except as noted in interval history. PHYSICAL EXAMINATION:?CloneBlock PE? VITAL SIGNS: Temperature?97.8, B/P?152/86, Oxygen?Saturation?96% Weight?216?lbs (Change?since?02/24/25:?0?lbs) PAIN: 0 - No pain Patient is alert oriented x 3 S1-S2 Bilateral good air entry Abdomen soft nontender nondistended no edema LABORATORY DATA: I have personally reviewed and interpreted each of the patient?s relevant lab tests, abnormal findings are below: Date 12/24/24 01/21/25 03/02/25 ??WHITE?BLOOD?COUNT?(Thou/mm3) ? ? 5.1 ??RED?BLOOD?COUNT?(Miln/mm3) ? ? 4.32?L ??HEMOGLOBIN?(gm/dl) ? ? 12.5?L ??HEMATOCRIT?(%) ? ? 36.6?L ??PLATELET?COUNT?(Thou/mm3) ? ? 200 ??NEUTROPHILS?%,?AUTO?(%) ? ? 72 ??LYMPH?%,?AUTO?(%) ? ? 20 ??NEUTROPHILS,?AUTO?(Thou/mm3) ? ? 3.7 ??GLUCOSE,RANDOM?(mg/dL) 241?H 155?H 215?H ??BLOOD?UREA?NITROGEN?(mg/dL) 17 13 14 ??CREATININE?(mg/dL) 1.00 0.90 1.00 ??SODIUM?(mmol/L) 139 141 140 ??POTASSIUM?(mmol/L) 4.4 4.0 4.0 ??CHLORIDE?(mmol/L) 105 106 105 ??CrCl?(CandG)?(ml/min) 77.77 86.42 77.03 ??AST/SGOT?(Unit/L) 23 ? 23 ??ALT/SGPT?(Unit/L) 19 ? 18 ??ALKALINE?PHOSPHATASE?(Unit/L) 48 ? 48 ??BILIRUBIN,?TOTAL?(mg/dL) 0.5 ? 0.6 ??PROTEIN?TOTAL?(gm/dl) 6.7 ? 6.7 ??ALBUMIN,?SERUM?(gm/dl) 4.1 ? 4.2 ??GLOBULIN?(gm/dl) 2.6 ? 2.5 ??ALBUMIN/GLOBULIN?RATIO 1.6 ? 1.7 ??CALCIUM,?SERUM?(mg/dL) 9.0 9.7 9.2 ??CALCIUM?SERUM?(CORRECTED)?(mg/dL) 9.0 ? 9.2 ASSESSMENT/PLAN:?Mayra Greene Assessment/Plan? Assessment and Plan will Stern is a 64-year-old male with a history of stage 4b castration-resistant metastatic prostate cancer presenting with disease progression and transportation barriers to specialized care. Stage 4b castration-resistant metastatic prostate cancer Assessment: The patient has advanced castration-resistant metastatic prostate cancer with extensive bone metastases demonstrated on nuclear bone scan from November 22, 2023. Disease has progressed despite treatment with prednisone, now on Xtandi with last PSA of 5. PSMA PET scan was ordered but remains incomplete due to logistical challenges. Patient was referred to [facility] for possible iridium therapy for metastatic bone disease but unable to attend due to transportation issues. Current supportive therapies include Lupron and Xgeva. Plan: - Continue Xtandi - Continue Lupron - Continue Xgeva as supportive therapy - Start docetaxel (patient prefers to wait for [facility] opinion before initiating chemotherapy, orders placed for approval) - Complete PSMA PET scan at [place] - Follow up with [facility] for iridium therapy evaluation - Follow-up in 2 months Transportation barriers to care Assessment: Patient cannot drive and primary caregiver daughter is unavailable after being in an accident and becoming ill herself. Other children live out of town or state. Transportation issues have prevented completion of PSMA scan and C referral appointment. Plan: - Provide transportation assistance for PSMA PET scan (can be done in [place] or [place], appointment pending in [place]) - jordan worker referral - Daughter designated as primary contact for referrals. Malignant neoplasm of prostate [ICD10] C61; Secondary malignant neoplasm of bone [ICD10] C79.51 . Continue Lupron, Xtandi as well as Xgeva. Patient is a good candidate for radium 223 Referral placed and advised to follow-up RETURN TO CLINIC: I reviewed the diagnosis, prognosis, and recommended treatment/procedure options with the patient (and/or their legal sales representative cash registers), including the potential benefits, risks, side effects and alternative therapies. We also discussed the option of no treatment and the possibility of clinical trial participation, if applicable. All questions were addressed, and they demonstrated understanding. They provided informed consent to proceed with the proposed plan of care. BILLING AND COMPLIANCE: I reviewed external records from providers outside my specialty as summarized above. I spent a total of 50 minutes on this patient?s care on the day of their visit excluding time spent related to any billed procedures. This time includes time spent with the patient as well as time spent documenting in the medical record, reviewing patients records and tests, obtaining history, placing orders, communicating with other healthcare professionals, counseling the patient, family or caregiver, and/or care coordination for the diagnoses above. Electronically Signed by: Gregorio Greene MD T: 1:41 AM CC: Sudha? PCP: Sabino Rodríguez Referring: Sabino Rodríguez This document was completed utilizing speech recognition software. Grammatical errors, random word insertions, pronoun errors, and incomplete sentences are an occasional consequence of this system due to software limitations, ambient noise, and hardware issues. Any formal questions or concerns about the content, text or information contained within the body of this dictation should be directly addressed to the provider for clarification.
== END 2025-03-09 23:59 | disposition home or self-care (01) ==
LOC: SCTC 13:04
PROVIDERS: PCP Family Medicine; Referring Provider Family Medicine; Visit Provider Internal Medicine Hematology & Oncology
DX: C61 Malignant neoplasm of prostate (principal); C79.51 Secondary malignant neoplasm of bone; Z19.2 Hormone resistant malignancy status; Z92.3 Personal history of irradiation; Z79.818 Long term (current) use of other agents affecting estrogen receptors and estrogen levels; Z59.82 Transportation insecurity
CPT/HCPCS: 99212; G0463

== ENCOUNTER → 2025-03-29 | Outpatient (CLI) | payer MEDICARE, MEDICAID, SELFPAY ==
[2025-03-29 14:07] LABS: Prostate Specific Antigen 4.42 ng/mL (0-4.00)
[2025-03-29 14:11] LABS: Alanine Aminotransferase 21 U/L (10-49); Albumin, Serum 4.4 gm/dL (3.4-4.8); Albumin/Globulin Ratio 1.7 (1.2-2.2); Alkaline Phosphatase 49 U/L (46-116); Anion Gap 12 (7-16); Aspartate Amino Transferase 22 U/L (0-34); BUN/Creatinine Ratio 9 Ratio (12-20); Bilirubin,Total 0.5 mg/dL (0.3-1.2); Blood Urea Nitrogen 9 mg/dL (9-23); Calcium 9.7 mg/dL (8.3-10.6); Calcium (Corrected) 9.7 mg/dL (8.5-10.1); Carbon Dioxide 25.1 mMol/L (20.0-31.0); Chloride 102 mMol/L (98-107); Creatinine (Component) 1.0 mg/dL (0.6-1.3); Globulin 2.6 gm/dL (2.3-3.5); Glucose 236 mg/dL (74-106); Osmolality,Calculated 284 (275-295); Potassium 4.3 mMol/L (3.4-5.1); Sodium 139 mMol/L (136-145); Total Protein 7.0 gm/dL (5.7-8.2); eGFR > 60 See Note
[2025-03-29 14:12] LABS: Basophils # (Auto) 0.0 Thou/mm3 (0.0-0.2); Basophils % (Auto) 1 % (0-2.5); Eosinophils # (Auto) 0.1 Thou/mm3 (0.0-0.5); Eosinophils % (Auto) 2 % (0-10); Hematocrit 37.4 % (41.0-53.0); Hemoglobin 12.4 g/dL (13.5-16.0); Immature Granulocytes Auto 0.05 Thou/mm3 (0.00-0.00); Lymphocytes # (Auto) 1.0 Thou/mm3 (1.0-4.8); Lymphocytes % (Auto) 19 % (10-50); Mean Corpuscular HGB Conc 33.2 g/dl (31.0-37.0); Mean Corpuscular Hemoglobin 28.5 pg (25.0-35.0); Mean Corpuscular Volume 86 fL (80-100); Monocytes # (Auto) 0.3 Thou/mm3 (0.0-0.8); Monocytes % (Auto) 5 % (0-12); Neutrophils # (Auto) 3.9 Thou/mm3 (1.8-7.7); Neutrophils % (Auto) 72 % (37-80); Nucleated Red Blood Cell # 0.00 Thou/mm3 (0.00-0.00); Nucleated Red Blood Cell % 0 /100 WBC (0); Platelet Count 229 Thou/mm3 (140-440); RDW Standard Deviation 40.5 fL (35.1-43.9); Red Blood Count 4.35 Miln/mm3 (4.50-5.90); White Blood Count 5.4 Thou/mm3 (3.8-10.6)
== END | disposition home or self-care (01) ==
LOC: SCTO 11:27
PROVIDERS: Referring Provider Internal Medicine Hematology & Oncology; Visit Provider Internal Medicine Hematology & Oncology
DX: C61 Malignant neoplasm of prostate (principal); C79.51 Secondary malignant neoplasm of bone
CPT/HCPCS: 36415; 80053; 84153; 85025

== ENCOUNTER 2025-03-31 09:01 | Outpatient (RCR) | payer MEDICARE, MEDICAID, SELFPAY | END 2025-04-09 23:59 | disposition home or self-care (01) | LOC: SCTC 09:01 | PROVIDERS: Referring Provider Internal Medicine Hematology & Oncology; Visit Provider Internal Medicine Hematology & Oncology | DX: Z51.11 Encounter for antineoplastic chemotherapy (principal); C61 Malignant neoplasm of prostate; C79.51 Secondary malignant neoplasm of bone; Z19.2 Hormone resistant malignancy status; Z59.82 Transportation insecurity | CPT/HCPCS: 96372; 96402; J0897; J9217 ==

== ENCOUNTER → 2025-04-26 | Outpatient (CLI) | payer MEDICARE, MEDICAID, SELFPAY ==
[2025-04-26 10:13] LABS: Basophils # (Auto) 0.0 Thou/mm3 (0.0-0.2); Basophils % (Auto) 1 % (0-2.5); Eosinophils # (Auto) 0.2 Thou/mm3 (0.0-0.5); Eosinophils % (Auto) 4 % (0-10); Hematocrit 38.8 % (41.0-53.0); Hemoglobin 12.8 g/dL (13.5-16.0); Immature Granulocytes Auto 0.03 Thou/mm3 (0.00-0.00); Lymphocytes # (Auto) 1.2 Thou/mm3 (1.0-4.8); Lymphocytes % (Auto) 23 % (10-50); Mean Corpuscular HGB Conc 33.0 g/dl (31.0-37.0); Mean Corpuscular Hemoglobin 28.3 pg (25.0-35.0); Mean Corpuscular Volume 86 fL (80-100); Monocytes # (Auto) 0.4 Thou/mm3 (0.0-0.8); Monocytes % (Auto) 7 % (0-12); Neutrophils # (Auto) 3.4 Thou/mm3 (1.8-7.7); Neutrophils % (Auto) 66 % (37-80); Nucleated Red Blood Cell # 0.00 Thou/mm3 (0.00-0.00); Nucleated Red Blood Cell % 0 /100 WBC (0); Platelet Count 237 Thou/mm3 (140-440); RDW Standard Deviation 40.6 fL (35.1-43.9); Red Blood Count 4.53 Miln/mm3 (4.50-5.90); White Blood Count 5.2 Thou/mm3 (3.8-10.6)
[2025-04-26 10:15] LABS: Glucose Estimated Average 169 mg/dL (80-131); Hemoglobin A1C 7.5 % Hgb (4.8-6.0)
[2025-04-26 10:41] LABS: Anion Gap 9 (7-16); BUN/Creatinine Ratio 14 Ratio (12-20); Blood Urea Nitrogen 13 mg/dL (9-23); Calcium 9.5 mg/dL (8.3-10.6); Carbon Dioxide 27.7 mMol/L (20.0-31.0); Chloride 103 mMol/L (98-107); Creatinine (Component) 0.9 mg/dL (0.6-1.3); Glucose 155 mg/dL (74-106); Osmolality,Calculated 282 (275-295); Potassium 4.5 mMol/L (3.4-5.1); Sodium 140 mMol/L (136-145); eGFR > 60 See Note
== END | disposition home or self-care (01) ==
LOC: COPL 09:31
PROVIDERS: PCP Family Medicine; Referring Provider Family Medicine; Visit Provider Family Medicine
DX: R73.9 Hyperglycemia, unspecified (principal); D50.9 Iron deficiency anemia, unspecified
CPT/HCPCS: 36415; 80048; 83036; 85025

== ENCOUNTER 2025-05-04 13:42 | Outpatient (RCR) | payer MEDICARE, MEDICAID, SELFPAY | END 2025-05-09 23:59 | disposition home or self-care (01) | LOC: SCTC 13:42 | PROVIDERS: PCP Family Medicine; Referring Provider Family Medicine; Visit Provider Internal Medicine Hematology & Oncology | DX: C61 Malignant neoplasm of prostate (principal); C79.51 Secondary malignant neoplasm of bone; Z19.2 Hormone resistant malignancy status; Z79.818 Long term (current) use of other agents affecting estrogen receptors and estrogen levels; Z59.82 Transportation insecurity | CPT/HCPCS: 99212; G0463 ==

== ENCOUNTER 2025-05-04 15:14 | Emergency (ER) | payer MEDICARE, MEDICAID, SELFPAY ==
[2025-05-04 15:14] VITALS: BMI 35.9
--- NOTE | 2025-05-04 15:18 | EKG_ITS ---
[facility] Test Date: 2025-05-04 Pat Name: LISE FLOWERS Department: Room: - Gender: Male Studio Data Analyst: : 1960 Requested By: Elisa Aviles Order Number: [id number] Reading MD: Elisa Aviles Measurements Intervals [place] Rate: 68 P: 19 KS: 159 QRS: -54 QRSD: 100 T: 62 QT: 396 QTc: 422 Interpretive Statements SINUS RHYTHM LEFT ANTERIOR FASCICULAR BLOCK [QRS AXIS <= -45, QR IN I, RS IN II] MINIMAL VOLTAGE CRITERIA FOR LVH, CONSIDER NORMAL VARIANT [MEETS CRITERIA IN ONE OF: R(aVL), S(V1), R(V5), R(V5/V6)+S(V1)] NONSPECIFIC T-WAVE ABNORMALITY Compared to ECG 10/07/2018 17:22:24 No significant changes /store/S0/[id number].pdf
[2025-05-04 15:27] VITALS: BP 124/84; PULSE 70; RESP 18; TEMP 36.8; O2SAT 95
--- NOTE | 2025-05-04 15:40 | XR_ITS ---
EXAMINATION: PA chest single view TECHNIQUE: Upright PA chest single view Date and time: May 04, 2025, 1553 hours INDICATIONS: Chest pain beginning 4 days ago. FINDINGS: Mild prominence left ventricle Mild elevation right hemidiaphragm. No pneumonia or pulmonary edema Suspicious for 20 mm pulmonary nodule right upper lobe IMPRESSION: Recommend CT chest without contrast follow-up to exclude 20 mm pulmonary nodule right upper lobe
--- NOTE | 2025-05-04 15:40 | PD.EDRME ---
Rapid Medical Screening Exam RME Arrival date/time: 05/04/25 15:14 65-year-old male with a history of prostate cancer that has metastasized to the bone was sent to the emergency room by the cancer treatment center for chest pain and palpitations x 2 days I have greeted and performed a focused initial assessment of this patient. A comprehensive ED assessment and evaluation of the patient, analysis of all test results, and completion of the medical decision making process will be conducted by additional ED providers. Chief Complaint: Chest Pain Vital signs: Vital Signs Temperature 98.3 F 05/04/25 15:27 Pulse Rate 70 05/04/25 15:27 Respiratory Rate 18 05/04/25 15:27 Blood Pressure 124/84 05/04/25 15:27 Pulse Oximetry (%) 95 05/04/25 15:27 Oxygen Delivery Method Room Air 05/04/25 15:27 Vital signs reviewed by provider: Yes Exam: Strong and regular rhythm S1 and S2 noted Clear bilateral lung sounds Clinical Impression: STEMI/NSTEMI/chest pain/palpitation
[2025-05-04 16:09] LABS: Basophils # (Auto) 0.0 Thou/mm3 (0.0-0.2); Basophils % (Auto) 0 % (0-2.5); Eosinophils # (Auto) 0.1 Thou/mm3 (0.0-0.5); Eosinophils % (Auto) 1 % (0-10); Hematocrit 38.4 % (41.0-53.0); Hemoglobin 13.1 g/dL (13.5-16.0); Immature Granulocytes Auto 0.03 Thou/mm3 (0.00-0.00); Lymphocytes # (Auto) 1.5 Thou/mm3 (1.0-4.8); Lymphocytes % (Auto) 19 % (10-50); Mean Corpuscular HGB Conc 34.1 g/dl (31.0-37.0); Mean Corpuscular Hemoglobin 29.0 pg (25.0-35.0); Mean Corpuscular Volume 85 fL (80-100); Monocytes # (Auto) 0.6 Thou/mm3 (0.0-0.8); Monocytes % (Auto) 8 % (0-12); Neutrophils # (Auto) 5.4 Thou/mm3 (1.8-7.7); Neutrophils % (Auto) 71 % (37-80); Nucleated Red Blood Cell # 0.00 Thou/mm3 (0.00-0.00); Nucleated Red Blood Cell % 0 /100 WBC (0); Platelet Count 251 Thou/mm3 (140-440); RDW Standard Deviation 40.4 fL (35.1-43.9); Red Blood Count 4.52 Miln/mm3 (4.50-5.90); White Blood Count 7.6 Thou/mm3 (3.8-10.6)
[2025-05-04 16:27] LABS: B-Type Natriuretic Peptide 45 pg/mL (0-100)
[2025-05-04 16:32] LABS: Alanine Aminotransferase 28 U/L (10-49); Albumin, Serum 4.8 gm/dL (3.4-4.8); Albumin/Globulin Ratio 1.8 (1.2-2.2); Alkaline Phosphatase 53 U/L (46-116); Anion Gap 9 (7-16); Aspartate Amino Transferase 30 U/L (0-34); BUN/Creatinine Ratio 11 Ratio (12-20); Bilirubin,Total 0.4 mg/dL (0.3-1.2); Blood Urea Nitrogen 11 mg/dL (9-23); Calcium 9.2 mg/dL (8.3-10.6); Calcium (Corrected) 9.2 mg/dL (8.5-10.1); Carbon Dioxide 25.6 mMol/L (20.0-31.0); Chloride 104 mMol/L (98-107); Creatinine (Component) 1.0 mg/dL (0.6-1.3); Estimated Creatinine Clearance 79.8 mL/min (>60); Free T4 (Free Thyroxine) 1.56 ng/dL (0.89-1.76); Globulin 2.6 gm/dL (2.3-3.5); Glucose 140 mg/dL (74-106); Osmolality,Calculated 278 (275-295); Potassium 4.3 mMol/L (3.4-5.1); Sodium 139 mMol/L (136-145); Thyroid Stimulating Hormone 1.63 uIU/mL (0.55-4.78); Total Protein 7.4 gm/dL (5.7-8.2); Troponin I < 0.020 ng/mL (0.0-0.045); eGFR > 60 See Note
[2025-05-04 16:35] LABS: Collection Type, Urine Clean Catch
[2025-05-04 16:44] LABS: Bilirubin,Urine Negative (Negative); Blood,Urine Negative (Negative); Clarity,Urine Clear (Clear/Hazy); Color,Urine Lt-Yellow (Lt Yel-Yel); Culture Indicated,Urine Not Indicated; Glucose, Urine Negative (Negative); Ketones,Urine Negative (Negative); Leukocyte Esterase,Urine Negative (Negative); Nitrite,Urine Negative (Negative); PH,Urine 6.5 (5.0-7.0); Protein,Urine Negative (Neg - Trace); RBC,Urine 2 /hpf (0-3); Specific Gravity,Urine 1.021 (1.001-1.035); Squamous Epithelial Cell,Urine < 1 /hpf (0-5); Urobilinogen,Urine 2.0 mg/dL (0.0-1.0); WBC,Urine 1 /hpf (0-5)
[2025-05-04 17:22] VITALS: BP 138/83; PULSE 80; RESP 20; TEMP 36.9; O2SAT 96
--- NOTE | 2025-05-04 19:02 | EDNOTE_ITS ---
ED General RME/HPI General Chief complaint: Chest Pain Stated complaint: CHEST PAIN X4 DAYS Time Seen by Provider: 05/04/25 18:57 Arrival date/time: 05/04/25 15:14 CC: Chest pain HPI ongoing for the past 4 days left anterior site-specific just above the left nipple. No prior history of similar events not reproducible with cough body rotation or pressure. Patient states pain increases when he bends over to reach something on the floor. Currently the pain is a 1-2 on a 10 scale which is significantly reduced spontaneously while waiting in the emergency room. Patient is afebrile nontoxic-appearing not in any acute distress. RME / HPI RME / HPI narrative: 05/04/25 15:14 65-year-old male with a history of prostate cancer that has metastasized to the bone was sent to the emergency room by the cancer treatment center for chest kae n and palpitations x 2 days I have greeted and performed a focused initial assessment of this patient. A comprehensive ED assessment and evaluation of the patient, analysis of all test results, and completion of the medical decision making process will be conducted by additional ED providers. Exam: Strong and regular rhythm S1 and S2 noted Clear bilateral lung sounds Impression: STEMI/NSTEMI/chest pain/palpitation Related Data Home Medications ?Medication ?Instructions ?Recorded ?Confirmed fentanyl 50 mcg/hr transdermal 50 mcg topical Q72H 06/2803/29/22 patch Xtendi 03/29/22 03/29/22 hydrocodone 10 mg-acetaminophen 1 tab PO Q4H 03/29/22 03/29/22 325 mg tablet Allergies Allergy/AdvReac Type Severity Reaction Status Date / Time No Known Allergies Allergy Verified 05/04/25 15:17 Review of Systems Review of Systems Narrative Review of Systems: GEN: No fever, no chills, no weight loss EYES: No discharge, no visual changes, no pain HEENT: No ear pain, no congestion, no sore throat PULM: No shortness of breath, no cough, no congestion CV: + chest pain, no dyspnea on exertion, no palpitations GI: No nausea, no vomiting, no diarrhea, no pain, no constipation : No frequency, no urgency, no dysuria MUSC/SKEL: No joint pain, no back pain SKIN: No rash PSYCH: No hallucinations, no depression HEME/LYMPH: No easy bleeding or bruising tendencies NEURO: No weakness, no headache Past Medical History Past Medical History NEUROLOGIC: Positive Neurological Disorders and Brain Tumor (benign); Negative Cerebrovascular Accident, Transient Ischemic Attacks (TIA), Dementia, Alzheimer's Disease, Parkinson's Disease, Meningitis, Seizures, Epilepsy, Multiple Sclerosis, Cerebral Palsy, Amyotrophic Lateral Sclerosis (ALS/Neeta Gehrig's), Guillain-Edison Syndrome, Spina Bifida, Paralysis, Peripheral Neuropathy, Davila's Palsy, Subdural Hematoma, Migraine, Head Trauma, Spinal Cord Injury or Traumatic Brain Injury CARDIAC: Positive Cardiac Disorders (pt had procedure, possibly angiogram, unclear.), Edema and Hypertension; Negative Myocardial Infarction, Cardiac Arrhythmia, Atrial Fibrillation, Angina, Heart Murmur, Coronary Artery Disease, Atherosclerotic Heart Disease, Peripheral Vascular Disease, Hypercholesterolemia, Aneurysm, Congestive Heart Failure, Congenital Heart Disease, Valvular Heart Disease, Rheumatic Fever, Cardiomyopathy, Pericarditis, Cellulitis, Deep Vein Thrombosis, Hypotension or Varicose Veins RESPIRATORY: Negative Chronic Obstructive Pulmonary Disease (COPD), Asthma, Bronchitis, Emphysema, Pneumonia, Pulmonary Fibrosis, Cystic Fibrosis, Tuberculosis, Pulmonary Embolism, Pulmonary Edema or Sleep Apnea GASTROINTESTINAL: Positive Gastrointestinal Disorders, Gall Bladder Disease (unknown if removed.), Gastroesophageal Reflux Disease and Obesity; Negative Hepatitis, Cirrhosis, Pancreatitis, Celiac Disease, Gastrointestinal Bleed, Esophageal Varices, Palacios's Esophagus, Colitis, Ulcerative Colitis, Diverticulitis, Diverticulosis, Ulcer, Colorectal Cancer, Irritable Bowel, Crohn's Disease, Obstructive Bowel, Hiatal Hernia or Hemorrhoids GENITOURINARY: Positive Prostate Cancer and Benign Prostatic Hyperplasia (prostate ca); Negative Genitourinary Disorders, Renal Disease, Kidney Stones, Polycystic Kidney Disease, Neurogenic Bladder, Inguinal Hernia or Dialysis REPRODUCTIVE: Negative Breast Cancer or Testicular Cancer MUSCULOSKELETAL: Positive Musculoskeletal Disorders, Bone Cancer (mets) and Arthritis; Negative Muscular Dystrophy, Myasthenia Gravis, Marfan's Syndrome, Rheumatoid Arthritis, Osteoporosis, Degenerative Disk Disease, Gout, Scoliosis, Carpal Tunnel Syndrome, Fibromyalgia, Fractures, Degenerative Joint Disease, Osteomyelitis or Poliovirus ENT: Negative Cataracts, Glaucoma, Blind, Retinal Detachment, Macular Degeneration, Ear Infection, Deafness, Head Trauma or Eye Prosthesis ENDOCRINE: Negative Endocrine Disorders, Diabetes Mellitus Type 1, Diabetes Mellitus Type 2, Hypoglycemia, Duncan's Syndrome, Raymundo's Disease, Hyperthyroidism, Hypothyroidism, Parathyroid Disease, Pituitary Disease, Systemic Lupus Erythematosus, Syndrome of Inappropriate Antidiuretic Hormone (SIADH), Adrenal Disease or Graves' Disease HEMATOLOGIC: Negative Blood Disorders, Anemia, Leukemia, Hemophilia, Thalassemia, Sickle Cell Disease or Clotting Problems PSYCHO/SOCIAL: Negative Psychiatric Problems, Schizophrenia, Recreational Drug Use, Bipolar Disorder, Depression, Anxiety, Behavior Problems, Self-Mutilation, Attention Deficit Disorder, Attention Deficit Hyperactivity Disorder, Depression, Post Traumatic Stress Disorder or Eating Disorder OTHER HISTORY: Positive Hospitalization, Radiation Therapy, Cancer and Prostate Cancer; Negative Autoimmune Disease, Down Syndrome, Autism, Developmental Delay, Shingles, Falls, Blood Transfusions, Blood Transfusion Reaction, Anesthesia Reactions, Organ Transplant, Chemotherapy, Hyperbaric Therapy, MRSA, VRSA, Vancomycin-Resistant Enterococci, Human Immunodeficiency Virus (HIV), Chicken Pox, Measles, Mumps, Rubella ([place] Measles), Pertussis, Clostridium Difficile, Breast Cancer, Colorectal Cancer, Lung Cancer or Testicular Cancer Family History FAMILY HISTORY: Negative Family Psychiatric Problems, Family Respiratory Disorders, Family Cardiac Disorders, Family Gastrointestinal Problems, Family Cancer, Family Surgery or Family Anesthesia Reaction Surgical History SURGICAL: Positive Angiogram (unclear) and Abdominal Surgery; Negative Cardiac Surgery, Open Heart Surgery, Coronary Artery Bypass Graft, Valve Replacement, Vascular Surgery, Coronary Stent, Cardiac Catheterization, Pacemaker, Auto Implanted Cardiovert Defib, Carotid Endarterectomy, Endocrine Surgery, Thyroidectomy, Ear Surgery, Tympanostomy Tube, Eye Surgery, Nose Surgery, Oral Surgery, Tonsillectomy, Adenoidectomy, Cochlear Implant, Corneal Transplant, Throat Surgery, Tracheostomy, Gastric Bypass Surgery, Gastrostomy, Bowel Surgery, Nephrectomy, Transurethral Resection, Joint Replacement, Amputation, Open Reduction Internal Fixation, Arthroscopy, Neurologic Surgery, Brain Shunt, Vasectomy or Organ Transplant Social History SMOKING STATUS: Former smoker ED Exam Narrative Physical exam: [General: Obese not in any acute distress Head normocephalic HEENT: Within acceptable limits Neck is supple nontender Chest equal chest rise nontender to palpation Respiratory: Clear to auscultation no wheezes crackles or rubs CV: Rate rhythm is regular no murmurs rubs or clicks Abdomen is distended secondary to body habitus soft nontender no masses positive bowel sounds all 4 quadrants Back: No CVA tenderness no spinous process tenderness from cervical spine thoracic and lumbar spine Skin: Intact no petechiae rash induration ulceration or crepitus Extremities: Moving all extremity against resistance cap refill less than 2 seconds neurosensory intact Neuro: Awake alert oriented x3 Glascow coma 15 no focal deficits] Course Quality Measures none Orders Category Date Time Status EKG (ED ONLY) *Do not use* NOW Care 05/04/25 15:18 Completed EKG (ED Only) Stat Exams 05/04/25 15:18 Draft XR chest 1V portable Stat Exams 05/04/25 15:40 Completed B-Type Natriuretic Peptide Stat Lab 05/04/25 15:48 Completed CBC Stat Lab 05/04/25 15:48 Completed Comprehensive Metabolic Panel Stat Lab 05/04/25 15:48 Completed Free T4 (Free Thyroxine) Stat Lab 05/04/25 15:48 Completed TSH [Thyroid Stimulating Hormone] Stat Lab 05/04/25 15:48 Completed Troponin I Stat Lab 05/04/25 15:48 Completed Urinalysis, C/S if Indicated Stat Lab 05/04/25 16:19 Completed Vital Signs Vital signs: Vital Signs Temperature 98.3 F 05/04/25 15:27 Pulse Rate 70 05/04/25 15:27 Respiratory Rate 18 05/04/25 15:27 Blood Pressure 124/84 05/04/25 15:27 Pulse Oximetry (%) 95 05/04/25 15:27 Oxygen Delivery Method Room Air 05/04/25 15:27 Discharge Plan Plan Patient Disposition: HOME (Self Care) Patient condition on transfer: Stable Prescriptions/Referrals Prescriptions/Med Rec: No Action fentanyl 50 mcg/hr Patch 72 Hour 50 mcg topical Q72H hydrocodone-acetaminophen 10-325 mg Tablet 1 tab PO Q4H (DME) Xtendi Referrals: Sabino Rodríguez MD [Primary Care Provider, Family Practice] - In 1 week Problem List Clinical Impression: Chest pain, Pulmonary nodule Patient/Caregiver Discharge Instructions Other Activity Instructions:: Follow-up note 3 months for repeat chest x-ray to make sure the pulmonary nodule does not enlarge in size. Education Materials: ED Chest Pain, Uncertain Cause, ED Pulmonary Nodule, Solitary Print Language: Urdu Stand Alone Forms: Angélica Award Info., Work/School Release, Patient Portal Info Letter PA/C S S REPRESENTATIVE Supervising Physician PA/C S S REPRESENTATIVE Supervising Physician: Dez Coronado ENP [facility] Clinical Information Provided by: patient Medical Records reviewed [facility] Medical Records additional comments: Prostate cancer with treatment Meds/Rx considered, not ordered None Labs/Rad/Tests considered, not ordered None Chronic Illness/Social Conditions Explain: Prostate CA EKG Interpretation EKG #1: EKG Interpretation: EKG performed at 1523 shows a ventricular rate of 68 CT interval 159 QRS of 100 QTc of 413 this is sinus rhythm. Labs Labs: interpreted by ma Lab(s) Interpretation(s): CBC shows no acute leukocytosis patient has a hemoglobin of 13.1 hematocrit of 38.4 no thrombocytopenia CMP shows no significant electrolyte imbalances other than a glucose of 148 no luck renal impairment no transaminitis or T. bili elevation Troponin is unremarkable BNP is within acceptable limits TSH at 1.63 free T41.56. Urine is negative for UTI Imaging Imaging interpretation: interpreted by ma Imaging Interpretation(s): Chest x-ray shows a pulmonary nodule otherwise no acute finding. Diagnosis Differential Diagnosis ED Complaint MDM: [facility] [place] pneumonia
[2025-05-04 19:17] VITALS: BP 120/81; PULSE 70; RESP 17; TEMP 37.1; O2SAT 95
== END 2025-05-04 19:25 | disposition home or self-care (01) ==
PROVIDERS: Nurse Practitioner Family; Emergency Provider Emergency Medicine; PCP Family Medicine
DX: R07.9 Chest pain, unspecified (principal); R91.1 Solitary pulmonary nodule; I44.4 Left anterior fascicular block; I10 Essential (primary) hypertension; Z87.891 Personal history of nicotine dependence
CPT/HCPCS: 36415; 71045; 80053; 81001; 83880; 84439; 84443; 84484; 85025; 93005; 99283